=== PATIENT | female | born 1980 | race Caucasian/White ===

== ENCOUNTER → 2020-09-30 | Outpatient (CLI) | payer MEDICAID ==
[~2020-09-30] MED LIST: BUSPAR5 MG PO; EFFEXOR-XR150 MG PO; ERGOCALCIFER50000 IU PO; PROVIGIL200 MG PO
== END ==
LOC: COL.RAD 11:15
DX: G35 Multiple sclerosis (principal); H46.9 Unspecified optic neuritis; F48.2 Pseudobulbar affect; F41.9 Anxiety disorder, unspecified
CPT/HCPCS: A9585

== ENCOUNTER → 2020-10-01 | Outpatient (CLI) | payer MEDICAID | LOC: MC.RAD 13:04 | DX: Z12.31 Encounter for screening mammogram for malignant neoplasm of breast (principal); G35 Multiple sclerosis; H46.9 Unspecified optic neuritis; R53.83 Other fatigue; F48.2 Pseudobulbar affect; F41.9 Anxiety disorder, unspecified ==

== ENCOUNTER → 2020-10-02 | Outpatient (CLI) | payer MEDICAID | LOC: COL.RAD 12:30 | DX: G35 Multiple sclerosis (principal); H46.9 Unspecified optic neuritis; F48.2 Pseudobulbar affect; F41.9 Anxiety disorder, unspecified | CPT/HCPCS: A9585 ==

== ENCOUNTER 2021-01-20 10:30 | Outpatient (RCR) | payer MEDICAID ==
[2021-01-06 12:06] VITALS: BP 123/77; PULSE 86; TEMP 98.6
[2021-01-06 12:35] VITALS: BP 126/83; PULSE 89
[2021-01-06 13:05] VITALS: BP 137/82; PULSE 91
[2021-01-06 13:35] VITALS: BP 136/83; PULSE 88
[2021-01-06 14:05] VITALS: BP 131/70; PULSE 109
--- NOTE | 2021-01-06 16:00 | NUR ---
PT TOLERATED HER OCREVUS INFUSION WITH NO ADVERSE OR ALLERGIC REACTIONS. PT REPORTED FEELING "NORMAL" THROUGHOUT HER INFUSION. VITALS WERE MONITORED EVERY 30 MINUTES THROUGHOUT INFUSION AND MONITORING PERIOD, HOWEVER SOME VITAL SIGNS WERE LOST AND NOT RECORDED. PT'S VITALS WERE STABLE THROUGHOUT. PT AMB WITH STEADY GAIT AT DEPARTURE. SHE REMAINED PWD, WITH REG AND UNLABORED RESPIRATIONS AND NO COMPLAINTS. PLAN TO RETURN IN 2 WEEKS FOR 2ND 1/2 OF INTIAL DOSE.
[2021-01-20] VITALS (9 sets, daily range): BP systolic 120–149; BP diastolic 67–97; PULSE 81–102; TEMP 97.7–98.5
[~2021-01-20] VITALS: Ht 160 cm; Wt 101.3 kg
== END 2021-01-20 15:41 | disposition home or self-care (01) ==
LOC: EUO 10:30
DX: G35 Multiple sclerosis (principal); Z79.899 Other long term (current) drug therapy
CPT/HCPCS: J2350; J2930; J7050

== ENCOUNTER 2021-07-21 09:08 | Outpatient (CLI) | payer MEDICAID ==
[2021-07-21] VITALS (7 sets, daily range): BP systolic 108–120; BP diastolic 65–84; PULSE 71–80; TEMP 97.9
[~2021-07-21 09:08] MED LIST changes: +D3-5050000 IU PO; -ERGOCALCIFER50000 IU PO
[2021-07-21] MEDS ORDERED: B-121000 MCG PO (12:27)
[2021-07-21] MEDS ORDERED: LAMICTAL 100MG100 MG PO (12:28)
== END 2021-07-21 13:46 ==
LOC: EUO 09:08
DX: G35 Multiple sclerosis (principal)
CPT/HCPCS: J2350; J2930; J7040

== ENCOUNTER → 2021-07-22 | Outpatient (CLI) | payer MEDICAID ==
[~2021-07-22] MED LIST changes: +B-121000 MCG PO; +LAMICTAL 100MG100 MG PO
== END ==
LOC: COL.RAD 07:25
DX: G35 Multiple sclerosis (principal); F48.2 Pseudobulbar affect; R53.83 Other fatigue; R79.89 Other specified abnormal findings of blood chemistry; G56.03 Carpal tunnel syndrome, bilateral upper limbs
CPT/HCPCS: A9575

== ENCOUNTER 2022-08-18 10:34 | Outpatient (RCR) | payer MEDICAID | END 2022-09-02 | disposition home or self-care (01) | LOC: WSST | DX: G31.84 Mild cognitive impairment of uncertain or unknown etiology (principal); G35 Multiple sclerosis; F48.2 Pseudobulbar affect ==

== ENCOUNTER 2023-09-28 13:13 | Emergency (ER) | payer MEDICAID ==
[~2023-09-28] VITALS: Ht 160 cm; Wt 77.5 kg
[2023-09-28 14:25] LABS: BASO % 0.6 % (0.0-2.0); EOS # 0.1 K/mm3 (0.0-0.7); EOS % 1.4 % (0.0-4.0); GRAN # 4.3 K/mm3 (1.4-6.5); GRAN % 66.7 % (42.2-75.2); HEMATOCRIT 41.6 % (37.0-47.0); HEMOGLOBIN 14.1 g/dl (12.5-16.0); LYMPH # 1.4 K/mm3 (1.2-3.4); LYMPH % 22.4 % (20.0-51.0); MEAN CELL VOLUME 90 fl (80.0-100.0); MEAN CORPUSCULAR HEMOGLOBIN 31 pg (27-31); MEAN CORPUSCULAR HGB CONC 34 g/dl (33.0-37.0); MEAN PLATELET VOLUME 11.2 fl (7.4-10.4); MONO # 0.6 K/mm3 (0.1-0.6); MONO % 8.6 % (1.7-9.3); PLATELET COUNT 271 K/mm3 (130-400); REDCELL DISTRIBUTION WIDTH-CV 12.5 % (11.5-14.5)
[2023-09-28 14:40] LABS: TRICYCLIC ANTIDEPRESS URINE NEGATIVE (NEGATIVE)
[2023-09-28 16:19] LABS: ALCOHOL(ethanol),MEDICAL < 10 mg/dL (0-10); SALICYLATE < 5.0 mg/dL (15.0-30.0)
[2023-09-28 16:28] LABS: ALANINE AMINOTRANSFERASE 14 U/L (0-55); ALBUMIN 4.2 g/dL (3.5-5.0); ALKALINE PHOSPHATASE 82 U/L (40-150); ANION GAP 17 mmol/L (7-16); AST,SGOT 15 U/L (5-34); BILIRUBIN,TOTAL 0.3 mg/dL (0.2-1.2); BLOOD UREA NITROGEN 14 mg/dL (7-19); CALCIUM 9.7 mg/dL (8.4-10.2); CHLORIDE 105 mEq/L (98-107); CREATININE, serum 0.77 mg/dL (0.57-1.11); GLUCOSE 104 mg/dL (70-99); POTASSIUM 3.5 mEq/L (3.5-4.5); SODIUM 142 mEq/L (136-145); TOTAL PROTEIN 7.4 g/dl (6.2-8.1)
[2023-09-28 22:18] VITALS: BP 171/101; PULSE 101; TEMP 97.7
== END 2023-09-28 22:20 ==
LOC: COL.ER 13:13
PROVIDERS: Personal Emergency Response Attendant
DX: R45.851 Suicidal ideations (principal); R44.0 Auditory hallucinations